=== PATIENT | female | born 2000 | race American Indian/Alaskan Native ===

== ENCOUNTER 2020-10-19 14:52 | Emergency (ER) | payer OTHER ==
[2020-10-19 16:27] VITALS: BP 138/92
--- NOTE | 2020-10-19 18:42 | Emergency Department Report ---
Chief Complaint: Dyspnea/Respdistress Stated Complaint: HEADACHE, BAD COUGH,SORE THROAT Time Seen by Provider: 10/19/20 17:27 - HPI History of Present Illness: Patient is a 20-year-old female presents emergency room complaints of URI symptoms that began 3 days ago. She states that her symptoms began a day after she went out to a nightclub. She has associated sore throat, sneezing, rhinorrhea, congestion, cough, headache. She denies any known sick contacts. She states that she did travel here from [place]. She denies any fever, nausea, vomiting, diarrhea, shortness of breath, abdominal pain. Past medical history of lactose intolerance. No allergies medications. Vitals are normal On exam: Non toxic appearing, no acute distress atraumatic, normocephalic normal appearance of the eyes, PERRL, EOMI, no periorbital edema or ecchymosis moist mucus membranes, normal oropharynx, no tonsillar hypertrophy or exudates, uvula is midline, no uvular edema or deviation, normal TMs and canals bilaterally, pale boggy turbinates with clear nasal mucus drainage regular heart rate and rhythm, no gallops, no rubs, no murmurs breath sounds are clear bilaterally, no w/r/r, no stridor, no respiratory stress, no excessive muscle use A&O x4, no focal neuro deficit skin is warm, dry, intact Patient is presenting for viral URI symptoms She has no clinical signs of bacterial pneumonia or bacterial bronchitis No signs of otitis or pharyngitis or tonsillitis Discussed symptomatic treatment and supportive care with patient discussed the importance of primary care follow-up Discussed return precautions Medical screen examination performed there is a threat to life or limb at this time - Exam Vital Signs: Vital Signs 10/19/20 16:25 Temperature 99.3 F Pulse Rate 91 H Respiratory 18 Rate Blood Pressure 138/92 [Right] O2 Sat by Pulse 100 Oximetry MSE screening note: Focused history and physical exam performed. Due to findings the following was ordered: ED Disposition for MSE Clinical Impression: Viral URI Disposition: DC-01 TO HOME OR SELFCARE Is pt being admited?: No Does the pt Need Aspirin: No Condition: Stable Instructions: Viral Respiratory Infection Additional Instructions: Please take mucinex, Claritin, and Flonase nasal spray [id number]. Increase your fluid intake. May use humidifier. May take Tylenol or ibuprofen as needed for discomfort. Follow-up with a primary care doctor. Return to emergency room any new or worse symptoms. Referrals: PRIMARY CARE,MD [Primary Care Provider] - 3-5 Days Time of Disposition: 18:41 Print Language: ESTONIAN
== END 2020-10-19 19:30 | disposition home or self-care (01) ==
LOC: ED 14:52
DX: J06.9 Acute upper respiratory infection, unspecified (principal); B97.89 Other viral agents as the cause of diseases classified elsewhere; Z91.040 Latex allergy status; Z79.899 Other long term (current) drug therapy
CPT/HCPCS: 99282

== ENCOUNTER 2020-12-24 15:53 | Emergency (ER) | payer SELFPAY ==
[2020-12-24 16:15] VITALS: BP 118/87
--- NOTE | 2020-12-24 17:07 | Emergency Department Report ---
ED General Adult HPI - General Chief complaint: Medical Clearance Stated complaint: ABD PAIN Time Seen by Provider: 12/24/20 16:49 Source: patient Mode of arrival: Ambulatory Limitations: No Limitations - History of Present Illness Initial comments: 20-year-old female patient presents to the emergency department with complaints of lower abdominal pain for 2 days. No known sick contacts. No recent travel. No current steroid or antibiotic use. Patient is requesting STD testing. States she contacted the local health department and next available appointment is in one month. Denies fever, chills, nausea, vomiting, diarrhea, constipation. Denies all other complaints at this time. - Related Data Previous Rx's Medication Instructions Recorded Last Taken Type Ibuprofen [Motrin] 600 mg PO Q8H PRN #30 tablet 12/27/19 Unknown Rx Lidocaine Viscous 2% 10 ml PO Q6H PRN #120 ml 12/27/19 Unknown Rx Penicillin V Potassium 500 mg PO Q6H #40 tablet 12/27/19 Unknown Rx predniSONE [Deltasone] 40 mg PO QDAY #10 tab 12/27/19 Unknown Rx Allergies Allergy/AdvReac Type Severity Reaction Status Date / Time latex Allergy Unknown Verified 12/26/19 18:11 whey Allergy Vomiting Verified 12/24/20 16:21 ED Review of Systems ROS: Stated complaint: ABD PAIN Other details as noted in HPI Other: GENERAL: Negative for fever, chills, weight change, anorexia, fatigue. ENT: Negative for ear pain, difficulty hearing, sore throat, nasal congestion, epistaxis. CARDIOVASCULAR: Negative for chest pain, palpitations, lower extremity swelling. PULMONARY: Negative for cough, dyspnea, wheezing, orthopnea, cyanosis. GASTROINTESTINAL: Positive for abdominal pain. MUSCULOSKELETAL: Negative for joint pain, joint swelling, myalgias, back pain, neck pain. NEUROLOGICAL: Negative for headache, seizure, syncope, paresthesias, weakness. INTEGUMENTARY: Negative for erythema, rash, diaphoresis, laceration, ecchymosis. HEMATOLOGICAL: Negative for hemoptysis, hematemesis, hematochezia, hematuria. PSYCHIATRIC: Negative for hallucinations, suicidal ideation, homicidal ideation, anxiety, depression. ED Past Medical Hx - Past Medical History Previous Medical History?: Yes Hx Psychiatric Treatment: Yes (anxiety) Additional medical history: anemia - Surgical History Past Surgical History?: No - Social History Smoking Status: Never Smoker Substance Use Type: Alcohol, Marijuana - Medications Home Medications: Home Medications Medication Instructions Recorded Confirmed Last Taken Type Ibuprofen [Motrin] 600 mg PO Q8H PRN #30 tablet 12/27/19 Unknown Rx Lidocaine Viscous 2% 10 ml PO Q6H PRN #120 ml 12/27/19 Unknown Rx Penicillin V Potassium 500 mg PO Q6H #40 tablet 12/27/19 Unknown Rx predniSONE [Deltasone] 40 mg PO QDAY #10 tab 12/27/19 Unknown Rx ED Physical Exam - General Limitations: No Limitations - Other Other exam information: General: Awake and alert. No acute distress. Head: Atraumatic, normocephalic. Eyes: EOMI. Pupils are equal and round. Normal sclera and conjunctiva. ENT: Oral mucosa is moist. Normal pharyngeal exam. Neck: Supple. No lymphadenopathy. Pulmonary: No respiratory distress. Clear to auscultation bilaterally. Cardiac: Regular rate and rhythm. Pulses are palpable and equal bilaterally. No lower extremity cyanosis or edema. Skin: Warm and dry. No rashes. Abdomen: Soft, non-protuberant. RLQ and suprapubic tenderness. No guarding, rigidity, or rebound. Bowel sounds are normal. No organomegaly or masses noted. Pelvic: Patient eloped prior to completion of physical examination. Back: Normal alignment. No CVA tenderness. Extremities: Symmetrical. Full range of motion intact. Neurological: Alert and oriented, appropriately interactive, no focal deficits. Psych: Cooperative. Appropriate mood and affect. Speech is evenly metered. Thoughts are logically construed. ED Course Vital Signs 12/24/20 12/24/20 16:12 17:03 Temperature 98.2 F Pulse Rate 61 Respiratory 18 Rate Blood Pressure 118/87 O2 Sat by Pulse 100 100 Oximetry ED Medical Decision Making - Lab Data Result diagrams: 12/24/20 16:59 12/24/20 16:59 - Medical Decision Making Differential diagnosis including but not limited to: appendicitis, ectopic , ovarian torsion, pelvic inflammatory disease, urinary tract infection, pyelonephritis Patient presents to the emergency department requesting STD testing in the setting of lower abdominal pain for 2 days. It was explained to the patient that STD testing is not available in our emergency department. It was explained to the patient that diagnostic work-up in the emergency department is designed to rule out life-threatening causes of abdominal pain, including but not limited to the conditions listed above. Patient understands that the presence of an STD will not be confirmed or ruled out on today's evaluation although empiric treatment may be indicated if pelvic inflammatory disease is suspected. Patient is agreeable to laboratory evaluation, urinalysis, and imaging as clinically indicated. Patient eloped from the emergency department prior to completion of physical examination and diagnostic evaluation. Critical care attestation.: If time is entered above; I have spent that time in minutes in the direct care of this critically ill patient, excluding procedure time. ED Disposition Clinical Impression: Eloped from emergency department Disposition: 07 LEFT AWOL/ELOPED Is pt being admited?: No Does the pt Need Aspirin: No Condition: Undetermined Instructions: Abdominal Pain (ED) Time of Disposition: 19:25
[2020-12-24 17:40] LABS: Alanine Aminotransferase 13 units/L (7-56); Albumin 4.2 g/dL (3.9-5); Blood Urea Nitrogen 8 mg/dL (7-17); Calcium 9.3 mg/dL (8.4-10.2); Hemolysis Index 8
[2020-12-24 17:46] LABS: BUN/Creatinine Ratio 11
[2020-12-24 17:49] LABS: Bilirubin,Urine NEG (Negative); Blood,Urine NEG (Negative); Color,Urine Amber (Yellow); Mucus,Urine 3+ /HPF; WBC,Urine < 1.0 /HPF (0.0-6.0)
[2020-12-24 17:56] LABS: Basophils % (Auto) 0.4 % (0.0-1.8); Eosinophils # (Auto) 0.1 K/mm3 (0.0-0.4); Eosinophils % (Auto) 0.9 % (0.0-4.3); Hematocrit 39.3 % (30.3-42.9); Hemoglobin 13.1 gm/dl (10.1-14.3); Lymphocytes # (Auto) 2.4 K/mm3 (1.2-5.4); Lymphocytes % (Auto) 28.2 % (13.4-35.0); Mean Corpuscular HGB Conc 33 % (30-34); Mean Corpuscular Volume 94 fl (79-97); Monocytes # (Auto) 0.8 K/mm3 (0.0-0.8); Monocytes % (Auto) 9.4 % (0.0-7.3); Platelet Count 224 K/mm3 (140-440); Red Blood Count 4.18 M/mm3 (3.65-5.03); Red Cell Distribution Width 14.3 % (13.2-15.2)
== END 2020-12-24 20:15 | disposition left against medical advice (07) ==
LOC: ED 15:53
DX: R10.30 Lower abdominal pain, unspecified (principal); F41.9 Anxiety disorder, unspecified; F12.90 Cannabis use, unspecified, uncomplicated; Z72.89 Other problems related to lifestyle; Z79.899 Other long term (current) drug therapy; Z91.040 Latex allergy status
CPT/HCPCS: 36415; 80053; 81001; 83690; 83735; 84703; 85025; 99283